=== PATIENT | female | born 2000 ===

== ENCOUNTER 2023-02-17 08:20 | Outpatient (AMB) | payer BC, SELFPAY ==
--- NOTE | 2023-02-17 08:23 | AM.OFFWIN_ITS ---
Intake Vital Signs 02/17/23 08:34 Height 5 ft 6 in Weight 132 lb 6 oz BMI 21.4 BP 102/68 Blood Pressure Location Rt brachial Position Sitting Respiration 15 Pulse 119 H Pulse Source Pulse Oximeter Temp 98.9 F Temp Source Temporal Artery Scan Pulse Oximetry (%) 98 Oxygen Delivery Method Room Air Intake Visit Reasons: Sore throat,ear pain Intake Note: Patient presents with a sore throat x6 days. Patient reports the pain radiates to her right ear as it is worsening since tuesday night. Patient has tried OTC ibuprofen and certrizine to help alleviate the pain and these did not help. Patient Tobacco Use Status: Never used Tobacco Consultative Sales Associate Required: No Accompanied by: Self / Same As Patient Allergies No Known Allergies Allergy (Verified 02/17/23 08:36) Do you need a note to return to daycare/school/sports/work: No HPI Sore throat,ear pain HPI Details Patient presents with worsening sore throat over the past few days, feeling flushed, malaise and some ear pressure. Has been using ibuprofen Tested for COVID at home and this was negative [facility] Social History Patient Tobacco Use Status: Never used Tobacco Review of Systems Const Details: Has felt feverish Malaise ENT Details: Sore throat and ear pressure-see HPI Physical Exam Vital Signs: Last Vital Signs Temp 98.9 F 02/17/23 08:34 Pulse 119 H 02/17/23 08:34 Resp 15 02/17/23 08:34 BP 102/68 02/17/23 08:34 Pulse Ox 98 02/17/23 08:34 Oxygen Delivery Method Room Air 02/17/23 08:34 BMI result Body Mass Index 21.4 HEENT Other: Posterior pharyngeal erythema and patchy exudates Ears with mild erythema around TMs but no pus Results AMB Rapid Strep AMB Rapid Strep Positive Last Edit by Akosua Garcia on 02/17/23 08: 44 Results Reviewed Results Reviewed: Laboratory Last Values Strep Scn Rapid Clinic Positive 02/17/23 08:43 Assessment & Plan Assessment & Plan (1) Strep pharyngitis: Code(s): J02.0 - Streptococcal pharyngitis Plan: Exam findings and rapid strep test positive for strep pharyngitis Start amoxicillin Warm saltwater gargles Ibuprofen for pain Hand hygiene Medications: New amoxicillin 500 mg PO Q12H 20 tabs 0RF 10 days Coding Level of Care Code New Pt Level 3 (03245) Diagnoses Strep pharyngitis J02.0
[2023-02-17 08:34] VITALS: BP 102/68; PULSE 119; RESP 15; TEMP 37.2; O2SAT 98; BMI 21.4
== END 2023-02-17 08:46 | disposition home or self-care (01) ==
PROVIDERS: Visit Provider Family Medicine
DX: J02.0 Streptococcal pharyngitis (principal); J02.9 Acute pharyngitis, unspecified
CPT/HCPCS: 87880; 99203